=== PATIENT | male | born 1970 | race African-American/Black ===

== ENCOUNTER 2025-08-03 09:25 | Emergency (ER) | payer SELFPAY ==
[~2025-08-03] VITALS: Ht 170.2 cm; Wt 59.0 kg
[2025-08-03] VITALS (7 sets, daily range): BP systolic 82; BP diastolic 58; PULSE 54–106; RESP 16–18; TEMP 36.9; O2SAT 100
[2025-08-03] MEDS ORDERED: EPINEPHRINE 5 MG in SODIUM CHLORIDE 0.9% 245 ML IV STA (09:36)
[2025-08-03] MEDS ORDERED: VANCOMYCIN 1.5GM/250ML 250 ML IV STA (10:14)
[2025-08-03] MEDS ORDERED: PIPERACILLIN/TAZO 3.375G/50ML 50 ML IV STA (10:14)
[2025-08-03] MEDS ORDERED: ACETAMINOPHEN 650MG SUPP PR PRN (10:30)
[2025-08-03] MEDS ORDERED: FENTANYL 2500MCG/250ML PMX 250 ML IV ONE (10:30)
[2025-08-03] MEDS ORDERED: ACETAMINOPHEN 650MG/20.3ML UDC NG PRN (10:30)
[2025-08-03] MEDS ORDERED: NOREPINEPHRINE 8 MG in DEXT 5% WATER 242 ML IV STA (10:31)
[2025-08-03 10:42] LABS: BASOPHILS % 0.6 % (0.0-2.0); EOSINOPHILS % 0.3 % (0.0-5.0); HEMATOCRIT. 35.4 % (42.0-52.0); HEMOGLOBIN. 10.3 g/dL (14.0-18.0); LYMPHOCYTES % 13.8 % (20.0-50.0); MEAN PLATELET VOLUME 7.5 fl (7.4-10.4); MONOCYTES % 5.2 % (2.0-8.0); NEUTROPHILS % 80.1 % (40.0-76.0); PLATELET 223 x1000/uL (130-400); RED BLOOD CELL COUNT 3.09 mill/uL (4.7-6.1); RED CELL DISTRIBUTION WIDTH 16.8 % (11.6-14.6)
[2025-08-03 10:46] LABS: ADD RBC MORPHOLOGY YES
[2025-08-03 10:51] LABS: CREATININE 1.6 mg/dL (0.6-1.3); UREA NITROGEN BLOOD 27 mg/dL (9-23)
[2025-08-03 10:53] LABS: ASPARTATE AMINOTRANSFERASE > 1000 IU/L (<34); BILIRUBIN DIRECT 0.4 mg/dL (<=3.0)
[2025-08-03 10:54] LABS: BILIRUBIN TOTAL 1.2 mg/dL (0.1-1.0); PROTEIN TOTAL 4.8 g/dL (6.0-8.3)
[2025-08-03 11:12] LABS: BG BASE EXCESS -31.6 mmol/L (-2.0-3.0); BG CARBOXYHEMOGLOBIN 0.5 % (0.5-1.5); BG DEOXYHEMOGLOBIN 0.6 % (0.0-5.0); BG FRACTION INSPIRED OXYGEN 100; BG HCO3 ACT 5.2 mmol/L (21.0-28.0); BG METHEMOGLOBIN 0.3 % (0.5-1.5); BG OXYGEN SATURATION 99.4 % (94.0-98.0); BG OXYHEMOGLOBIN 98.6 % (94.0-98.0); BG PCO2 52.8 mmHg (35.0-48.0); BG PEEP (cmH2O) 5.0 cmH2O; BG PH 6.615 (7.350-7.450); BG PO2 477.0 mmHg (83.0-108.0); BG SAMPLE SITE RIGHT FEMORAL; BG TIDAL VOLUME(mL) 500.0 mL; BG TOTAL HEMOGLOBIN 9.8 g/dL (13.5-17.5); BG VENT MODE VENT - AC; BG VENT RATE 16.0 set
[2025-08-03 11:13] LABS: TROPONIN I HIGH SENSITIVITY 73 ng/L (3.0-53)
[2025-08-03 11:21] LABS: PLATELET ESTIMATE NORMAL
[2025-08-03] MEDS ORDERED: IOHEXOL-300 100 ML BOTTLE ONE (11:21)
[2025-08-03] MEDS: INSULIN REGULAR (HUMULIN R) 1000UNITS/10ML VIAL IV ONE (11:30)
[2025-08-03] MEDS: DEXTROSE 50% WATER 50ML SYRINGE IV ONE (11:30)
[2025-08-03] MEDS ORDERED: CALCIUM CHLORIDE 1,000 MG in SODIUM CHLORIDE 0.9% 100 ML IV ONE (12:15)
[2025-08-03] MEDS ORDERED: VASOPRESSIN 20 UNIT in SODIUM CHLORIDE 0.9% 99 ML IV PRN ×2 (12:45→13:00)
[2025-08-03] MEDS: NOREPINEPHRINE 8MG/250ML PMX 250 ML IV PRN (12:50)
[2025-08-03] MEDS: LACTATED RINGERS 1,000 ML IV SCH (12:51)
[2025-08-03] MEDS: FENTANYL 2500MCG/250ML PMX 250 ML IV PRN (12:52)
[2025-08-03] MEDS: EPINEPHRINE 5 MG in SODIUM CHLORIDE 0.9% 245 ML IV PRN (12:52)
[2025-08-03 13:12] LABS: TROPONIN I HIGH SENSITIVITY 283 ng/L (3.0-53)
[2025-08-03] MEDS ORDERED: PIPERACILLIN/TAZO 3.375G/50ML 50 ML IV SCH (14:00)
== END 2025-08-03 14:36 | disposition short-term general hospital (02) ==
LOC: ER 09:25 → CANBEDREQ 12:34 → ER 14:36
DX: I46.9 Cardiac arrest, cause unspecified (principal); R06.02 Shortness of breath; Z79.899 Other long term (current) drug therapy
CPT/HCPCS: 80076; 80048; 80307; 80329; 80320; 82962; 83735; 85025; 86850; 86900; 86901; 86920; 87040; 84484; 36415; 71045; 70450; 70486; 71260; 72125; 74177; 82805; 82375; 92950; 31500; 93005; 86927; 36600; J3010; Q9967; J3490 ×4; J1815; J7050 ×2; Z7610 ×6; 94002; J7060; P9016; P9017; P9034; G0480